=== PATIENT | female | born 2000 | race Caucasian/White ===

== ENCOUNTER 2018-07-13 17:51 | Emergency (ER) | payer BC ==
[2018-07-13 18:24] VITALS: BP 146/90
--- NOTE | 2018-07-13 18:43 | ED ---
Throat Pain/Nasal Congestion - HPI Summary HPI Summary: 17 yr old with 2-3 days of nasal congestion and now 6 hours of sore throat. She states the pain in throat made difficult to swallow or talk. She is talking much better now. She denies fever, chills. No drooling, no stridor. - History of Current Complaint Chief Complaint: UCGeneralIllness Time Seen by Provider: 07/13/18 18:26 - Allergies/Home Medications Allergies/Adverse Reactions: Allergies Allergy/AdvReac Type Severity Reaction Status Date / Time kiwi Allergy Rash Verified 07/13/18 18:24 latex Allergy Hives Verified 07/13/18 18:24 Penicillins Allergy Unknown Verified 07/13/18 18:24 Reaction Details Home Medications: Home Medications Oral Contraceptives DAILY 07/13/18 [History] PMH/Surg Hx/FS Hx/Imm Hx - Surgical History Surgery Procedure, Year, and Place: bilateral knee ACL. Left ankle. wisdom teeth Infectious Disease History: No Infectious Disease History: Denies: Traveled Outside the [place] in Last 30 Days - Family History Known Family History: Positive: None - Social History Occupation: Student Lives: Dormitory/Roommates Alcohol Use: None Substance Use Type: Reports: None Smoking Status (MU): Never Smoked Tobacco Review of Systems Constitutional: Negative Positive: Sore Throat, Nasal Discharge All Other Systems Reviewed And Are Negative: Yes Physical Exam Triage Information Reviewed: Yes Vital Signs On Initial Exam: Initial Vitals Temp Pulse Resp BP Pulse Ox 98.6 F 94 16 146/90 98 07/13/18 18:18 07/13/18 18:18 07/13/18 18:18 07/13/18 18:18 07/13/18 18:18 Vital Signs Reviewed: Yes Appearance: Positive: Well-Appearing, No Pain Distress Skin: Positive: Warm, Skin Color Reflects Adequate Perfusion Head/Face: Positive: Normal Head/Face Inspection Eyes: Positive: EOMI ENT: Positive: Pharyngeal erythema, Nasal congestion, Nasal drainage, TMs normal Neck: Positive: Nontender Respiratory/Lung Sounds: Positive: Clear to Auscultation, Breath Sounds Present Cardiovascular: Positive: RRR. Negative: Murmur Abdomen Description: Positive: Nontender Musculoskeletal: Positive: Strength/ROM Intact Neurological: Positive: Sensory/Motor Intact, Alert, Oriented to Person Place, Time, CN Intact II-III Psychiatric: Positive: Normal Diagnostics - Vital Signs Vital Signs Temp Pulse Resp BP Pulse Ox 07/13/18 18:18 98.6 F 94 16 146/90 98 - Laboratory Lab Statement: Any lab studies that have been ordered have been reviewed, and results considered in the medical decision making process. EENT Course/Dx - Course Course Of Treatment: 17 yr old with URI. DC home. Strep neg - Diagnoses Provider Diagnoses: Upper respiratory infection, Hypertension Discharge - Sign-Out/Discharge Documenting (check all that apply): Patient Departure All imaging exams completed and their final reports reviewed: No Studies - Discharge Plan Condition: Good Disposition: HOME Patient Education Materials: Upper Respiratory Infection (ED) Referrals: No Primary Care Phys,NOPCP [Primary Care Provider] - [facility] [Outside] - Billing Disposition and Condition Condition: GOOD Disposition: Home
== END 2018-07-13 18:47 | disposition home or self-care (01) ==
LOC: UCCORT 17:51
DX: J06.9 Acute upper respiratory infection, unspecified (principal); I10 Essential (primary) hypertension; Z88.0 Allergy status to penicillin; Z91.040 Latex allergy status; Z91.018 Allergy to other foods
CPT/HCPCS: 87651; 99201; G0463